=== PATIENT | male | born 1995 | race Caucasian/White ===

== ENCOUNTER 2017-07-19 22:20 | Emergency (ER) | payer MEDICAID, OTHER ==
[~2017-07-19] VITALS: Ht 175.3 cm; Wt 50.5 kg
[2017-07-19 22:21] VITALS: BP 112/71
[2017-07-19] MEDS ORDERED: KETOROLAC 30 MG/1 ML ONE (23:52)
[2017-07-20] MEDS ORDERED: KETOROLAC 30 MG/1 ML IM ONE
== END 2017-07-20 00:15 | disposition home or self-care (01) ==
LOC: ED 23:59
DX: S06.0X0A Concussion without loss of consciousness, initial encounter (principal); S16.1XXA Strain of muscle, fascia and tendon at neck level, initial encounter; S39.012A Strain of muscle, fascia and tendon of lower back, initial encounter; V89.2XXA Person injured in unspecified motor-vehicle accident, traffic, initial encounter; Y93.89 Activity, other specified; Y92.89 Other specified places as the place of occurrence of the external cause; Y99.8 Other external cause status
CPT/HCPCS: 70450; 72072; 72125; 96372; 99284; J1885

== ENCOUNTER 2019-12-10 02:38 | Emergency (ER) | payer OTHER ==
[~2019-12-10] VITALS: Ht 175.3 cm; Wt 48.1 kg
[2019-12-10 02:39] VITALS: BP 117/82
[2019-12-10] MEDS ORDERED: IBUPROFEN 200 MG TABLET PO ONE (03:30)
[2019-12-10] MEDS ORDERED: METHOCARBAMOL 750 MG TABLET PO ONE (03:30)
[2019-12-10] MEDS ORDERED: METHOCARBAMOL 750 MG TABLET ONE (03:51)
[2019-12-10] MEDS ORDERED: IBUPROFEN 200 MG TABLET ONE (03:52)
--- NOTE | 2019-12-10 03:57 | NUR ---
Patient/Caregiver given discharge instructions and they have confirmed that they understand the instructions. Patient ambulatory with steady gait.
== END 2019-12-10 03:58 | disposition home or self-care (01) ==
LOC: ED 03:08
DX: K02.9 Dental caries, unspecified (principal); K01.1 Impacted teeth; K08.89 Other specified disorders of teeth and supporting structures
CPT/HCPCS: 99283

== ENCOUNTER 2020-04-19 15:51 | Emergency (ER) | payer MEDICAID ==
[~2020-04-19] VITALS: Ht 175.3 cm; Wt 49.5 kg
[2020-04-19 16:05] VITALS: BP 113/64
== END 2020-04-19 16:53 | disposition home or self-care (01) ==
LOC: ED 16:28
DX: K02.9 Dental caries, unspecified (principal); K08.89 Other specified disorders of teeth and supporting structures
CPT/HCPCS: 99283

== ENCOUNTER 2020-04-23 17:00 | Inpatient (IN) | payer MEDICAID ==
[~2020-04-23] VITALS: Ht 175.3 cm; Wt 49.4 kg
[2020-04-23] MEDS ORDERED: ONDANSETRON 2MG/ML, 2ML IVPush ONE (17:30)
[2020-04-23] MEDS ORDERED: SODIUM CHLORIDE FLUSH 10ML SYR IVF ONE (17:30)
[2020-04-23] MEDS ORDERED: DEXAMETHASONE 4 MG/ML, 1ML IVPush ONE (17:30)
[2020-04-23] MEDS ORDERED: SODIUM CHLORIDE 0.9% 1,000ML IVBOLUS ONE (17:30)
[2020-04-23 18:50] LABS: BASOPHILS % (AUTO) 1 % (0-1); EOSINOPHILS % (AUTO) 0 % (1-7); LYMPHOCYTES % (AUTO) 12 % (22-44); MEAN CORPUSCULAR HEMOGLOBIN 30.3 pg (27.5-34.5); MEAN CORPUSCULAR HGB CONC 34.2 g/dL (33.2-36.2); MEAN PLATELET VOLUME 8.7 fL (7.4-10.4); MONOCYTES % (AUTO) 10 % (2-9); NEUTROPHILS % (AUTO) 77 % (42-75); PLATELET COUNT 249 x10^3/uL (130-400); RED BLOOD COUNT 4.98 x10^6/uL (4.38-5.82); RED CELL DISTRIBUTION WIDTH 12.9 % (9.4-14.8)
[2020-04-23 18:52] LABS: MD NO
[2020-04-23 18:56] LABS: ALBUMIN 3.8 g/dL (3.4-5.0); ANION GAP 4 mmol/L (5-15); CALCIUM 9.3 mg/dL (8.5-10.1); CHLORIDE 107 mmol/L (98-107); CREATININE 0.79 mg/dL (0.7-1.3)
[2020-04-23] MEDS ORDERED: DEXAMETHASONE 4 MG/ML, 5ML ONE (20:38)
[2020-04-23] MEDS ORDERED: MORPHINE SULFATE 4 MG/ML, 1ML ONE (20:39)
[2020-04-23] MEDS ORDERED: ONDANSETRON 2MG/ML, 2ML ONE (20:39)
[2020-04-23] MEDS: MORPHINE SULFATE 4 MG/ML, 1ML IVPush PRN (20:46)
--- NOTE | 2020-04-23 20:50 | NUR ---
PT MEDICATED PER ORDER PRIOR TO CT. PT TO CT NOW
[2020-04-23] MEDS ORDERED: OMNIPAQUE 350 MG/ML, 100ML BOTTLE ONE (20:57)
--- NOTE | 2020-04-23 22:05 | NUR ---
PT TO BE ADMITTED. NPO AFTER MIDNIGHT.
[2020-04-23] MEDS ORDERED: SODIUM CHLORIDE 0.9% 1,000 ML IV ONE (22:30)
[2020-04-23] MEDS ORDERED: AMPICILLIN/SULBACTAM 3 GM in SODIUM CHLORIDE 0.9% 100 ML IV ONE (22:30)
[2020-04-23] MEDS ORDERED: SODIUM CHLORIDE 0.9% 1,000 ML IV SCH (23:00)
[2020-04-23] MEDS ORDERED: HEPARIN 5,000 UNITS/ML, 1ML SQ SCH (23:00)
[2020-04-23] MEDS ORDERED: DOCUSATE 100 MG CAPSULE PO PRN (23:00)
[2020-04-23] MEDS ORDERED: ACETAMINOPHEN 325 MG TABLET PO PRN (23:00)
--- NOTE | 2020-04-23 23:04 | NUR ---
RECEIVED BS REPORT FROM LUIS LLANOS TO ASSUME CARE OF PT. PT. RESTING ON GURNEY WITH NAD. PT. DENIES DISCOMFORT/PAIN AT THIS TIME. CALL LIGHT IN REACH. AWAITING HOSPITAL BED.
[2020-04-24] MEDS: DEXAMETHASONE 4 MG/ML, 1ML IVPush SCH ×4 (00:21→19:32)
[2020-04-24] MEDS ORDERED: HEPARIN 5,000 UNITS/ML, 1ML ONE (01:06)
--- NOTE | 2020-04-24 01:21 | NUR ---
NEW IV PLACED PER PT. REQUEST. EXPLANIED NPO STATUS TO PT. PT. UPSET WITH THIS BUT DID VERBALIZE UNDERSTANDING. MEDICATED PER JUN. AWATING HOSPITAL BED FOR PT.
--- NOTE | 2020-04-24 02:49 | NUR ---
HOSPITAL BED PROVIDED TO PT. PT. DENIES OTHER NEEDS AT THIS TIME. CALL LIGHT IN REACH; ALL VS UPDATED.
[2020-04-24 04:48] LABS: BASOPHILS % (AUTO) 0 % (0-1); EOSINOPHILS % (AUTO) 0 % (1-7); LYMPHOCYTES % (AUTO) 11 % (22-44); MEAN CORPUSCULAR HGB CONC 33.8 g/dL (33.2-36.2); MEAN PLATELET VOLUME 9.1 fL (7.4-10.4); MONOCYTES % (AUTO) 3 % (2-9); NEUTROPHILS % (AUTO) 86 % (42-75); PLATELET COUNT 229 x10^3/uL (130-400); RED BLOOD COUNT 4.39 x10^6/uL (4.38-5.82); RED CELL DISTRIBUTION WIDTH 12.8 % (9.4-14.8)
[2020-04-24] MEDS ORDERED: DEXAMETHASONE 4 MG/ML, 1ML ONE (04:52)
[2020-04-24 04:59] LABS: ANION GAP 5 mmol/L (5-15); CALCIUM 8.1 mg/dL (8.5-10.1); CHLORIDE 108 mmol/L (98-107)
[2020-04-24 05:00] LABS: CREATININE 0.66 mg/dL (0.7-1.3)
[2020-04-24 05:09] LABS: MD NO
--- NOTE | 2020-04-24 05:09 | NUR ---
PT. AMBULATORY ACROSS [facility] TO BR WITH STEADY GAIT. MEDICATED PER JUN. VS UPDATED. RAPID COVID COLLECTED AND WALKED TO LAB. PT. DENIES NEEDS AT THIS TIME. REPORTS INCREASING PAIN BUT DECLINES PAIN MEDS AT THIS TIME; AWARE THEY ARE AVAIL IF NEEDED AND STATES WILL CALL. CALL LIGHT IN REACH.
[2020-04-24] MEDS ORDERED: AMPICILLIN/SULBACTAM 3 GM in SODIUM CHLORIDE 0.9% 100 ML IV SCH (05:30)
--- NOTE | 2020-04-24 07:09 | NUR ---
REPORT TO LUIS BRIZUELA.
--- NOTE | 2020-04-24 07:48 | NUR ---
RECEIVED REPORT FROM AMELIA. PATIENT IS RESTING COMFORTABLY WITH NO COMPLAINTS.
[2020-04-24] MEDS ORDERED: MORPHINE SULFATE 4 MG/ML, 1ML ONE ×3 (08:09→22:28)
[2020-04-24] MEDS: MORPHINE SULFATE 4 MG/ML, 1ML IVPush PRN (08:12)
[2020-04-24] MEDS: NICOTINE 14MG/24 HR PATCH.TD24 TD SCH (09:00)
[2020-04-24] MEDS: HEPARIN 5,000 UNITS/ML, 1ML SQ SCH ×3 (09:30→22:03)
[2020-04-24 11:07] VITALS: BP 110/58
[2020-04-24] MEDS: AMPICILLIN/SULBACTAM 3 GM in SODIUM CHLORIDE 0.9% 100 ML IV SCH ×2 (11:20→20:23)
[2020-04-24 12:00] VITALS: BP 120/56
[2020-04-24] MEDS ORDERED: CHLORHEXIDINE 15 ML UDC ONE ×2 (16:04→17:06)
[2020-04-24] MEDS ORDERED: CHLORHEXIDINE 15 ML UDC MM ONE (16:30)
[2020-04-24] MEDS ORDERED: BUPIVACAINE/PF 0.25% ONE (16:53)
[2020-04-24] MEDS ORDERED: EPINEPHRINE 1 MG/ML, 1ML ONE (16:53)
[2020-04-24] MEDS ORDERED: LIDOCAINE/PF 1%, 30ML ONE (16:53)
[2020-04-24] MEDS ORDERED: FENTANYL PF 250 MCG/5ML ONE (17:16)
[2020-04-24] MEDS ORDERED: MIDAZOLAM 1 MG/ML, 2ML ONE (17:16)
[2020-04-24] MEDS ORDERED: PROPOFOL 10 MG/ML, 20ML ONE (17:21)
[2020-04-24] MEDS ORDERED: OXYMETAZOLINE NASAL SPRAY 0.05%,30ML ONE (17:21)
[2020-04-24] MEDS ORDERED: ONDANSETRON 2MG/ML, 2ML ONE (17:21)
[2020-04-24] MEDS ORDERED: ROCURONIUM 10 MG/ML,10ML ONE (17:21)
[2020-04-24] MEDS ORDERED: SUCCINYLCHOLINE 20 MG/ML, 10ML ONE (17:21)
[2020-04-24] MEDS ORDERED: LIDOCAINE 1%-EPI 1:100K, 20ML INFIL ONE (17:34)
[2020-04-24] MEDS ORDERED: ONDANSETRON 2MG/ML, 2ML IVPush PRN (18:00)
[2020-04-24] MEDS ORDERED: LABETALOL 5MG/ML, 20ML IV PRN (18:00)
[2020-04-24] MEDS ORDERED: OXYcodone 5 MG/5 ML ORAL.SOL UDC PO PRN (18:00)
[2020-04-24] MEDS ORDERED: PROMETHAZINE 25 MG/ML, 1ML IV PRN (18:00)
[2020-04-24] MEDS ORDERED: KETOROLAC 30 MG/1 ML IV PRN (18:00)
[2020-04-24] MEDS ORDERED: HYDROmorphone 1 MG/ML, 1ML INJ IV PRN (18:00)
[2020-04-24] MEDS ORDERED: DIAZEPAM 5 MG/ML, 2ML IV PRN ×2 (18:00)
[2020-04-24] MEDS ORDERED: MEPERIDINE/PF 25MG/0.5ML IVPush PRN (18:00)
[2020-04-24] MEDS ORDERED: METOCLOPRAMIDE 5 MG/ML, 2ML IV PRN (18:00)
[2020-04-24] MEDS ORDERED: hydrALAzine 20 MG/ML, 1ML IV PRN (18:00)
[2020-04-24] MEDS ORDERED: ALBUTEROL SULFATE 2.5 MG/3 ML NPPB PRN (18:00)
[2020-04-24] MEDS ORDERED: FENTANYL PF 100 MCG/2ML ONE (18:04)
[2020-04-24] MEDS ORDERED: DIAZEPAM 5 MG/ML, 2ML ONE (18:10)
[2020-04-24] MEDS: FENTANYL PF 100 MCG/2ML IV PRN ×2 (18:12→18:17)
[2020-04-24] MEDS ORDERED: ALBUTEROL HFA 90 MCG/SPRAY INH PRN (18:30)
[2020-04-24] MEDS: morphine SULFATE 10 MG/ML, 1ML IVPush PRN ×2 (19:31→22:32)
[2020-04-24] MEDS: CHLORHEXIDINE 15 ML UDC MM SCH (19:32)
[2020-04-24 20:28] VITALS: BP 145/80
[2020-04-25] MEDS ORDERED: MORPHINE SULFATE 4 MG/ML, 1ML ONE ×2 (01:25→04:22)
[2020-04-25] MEDS: morphine SULFATE 10 MG/ML, 1ML IVPush PRN ×3 (01:31→20:32)
[2020-04-25] MEDS: DEXAMETHASONE 4 MG/ML, 1ML IVPush SCH ×4 (01:31→20:25)
[2020-04-25 02:26] VITALS: BP 118/73
[2020-04-25] MEDS: AMPICILLIN/SULBACTAM 3 GM in SODIUM CHLORIDE 0.9% 100 ML IV SCH ×4 (02:35→22:24)
[2020-04-25 05:51] LABS: BASOPHILS % (AUTO) 0 % (0-1); EOSINOPHILS % (AUTO) 0 % (1-7); LYMPHOCYTES % (AUTO) 3 % (22-44); MEAN CORPUSCULAR HGB CONC 33.7 g/dL (33.2-36.2); MEAN PLATELET VOLUME 8.6 fL (7.4-10.4); MONOCYTES % (AUTO) 7 % (2-9); NEUTROPHILS % (AUTO) 90 % (42-75); PLATELET COUNT 234 x10^3/uL (130-400); RED BLOOD COUNT 4.22 x10^6/uL (4.38-5.82); RED CELL DISTRIBUTION WIDTH 12.7 % (9.4-14.8)
[2020-04-25 06:03] LABS: CHLORIDE 107 mmol/L (98-107)
[2020-04-25 06:09] LABS: MD NO
[2020-04-25 06:11] LABS: ALANINE AMINOTRANSFERASE 13 U/L (12-78); ALBUMIN 2.9 g/dL (3.4-5.0); ALKALINE PHOSPHATASE 58 U/L (45-117); ANION GAP 4 mmol/L (5-15); BILIRUBIN,TOTAL 0.4 mg/dL (0.2-1.0); CALCIUM 8.3 mg/dL (8.5-10.1); CREATININE 0.62 mg/dL (0.7-1.3); TOTAL PROTEIN 6.2 g/dL (6.4-8.2)
[2020-04-25 07:15] VITALS: BP 122/67
[2020-04-25] MEDS: CHLORHEXIDINE 15 ML UDC MM SCH ×2 (08:03→20:26)
[2020-04-25] MEDS: NICOTINE 14MG/24 HR PATCH.TD24 TD SCH (08:04)
[2020-04-25] MEDS: HEPARIN 5,000 UNITS/ML, 1ML SQ SCH ×2 (08:04→16:46)
[2020-04-25 12:10] VITALS: BP 117/71
[2020-04-25 19:09] VITALS: BP 125/76
[2020-04-26 00:20] VITALS: BP 114/69
[2020-04-26] MEDS: HEPARIN 5,000 UNITS/ML, 1ML SQ SCH ×3 (01:09→17:30)
[2020-04-26] MEDS: DEXAMETHASONE 4 MG/ML, 1ML IVPush SCH ×4 (03:06→20:38)
[2020-04-26] MEDS: AMPICILLIN/SULBACTAM 3 GM in SODIUM CHLORIDE 0.9% 100 ML IV SCH ×4 (04:53→23:04)
[2020-04-26 06:50] VITALS: BP 113/75
[2020-04-26 07:16] LABS: BASOPHILS % (AUTO) 0 % (0-1); EOSINOPHILS % (AUTO) 0 % (1-7); LYMPHOCYTES % (AUTO) 6 % (22-44); MEAN CORPUSCULAR HEMOGLOBIN 30.8 pg (27.5-34.5); MEAN CORPUSCULAR HGB CONC 34.6 g/dL (33.2-36.2); MEAN PLATELET VOLUME 8.7 fL (7.4-10.4); MONOCYTES % (AUTO) 9 % (2-9); NEUTROPHILS % (AUTO) 85 % (42-75); PLATELET COUNT 256 x10^3/uL (130-400); RED BLOOD COUNT 4.29 x10^6/uL (4.38-5.82); RED CELL DISTRIBUTION WIDTH 12.8 % (9.4-14.8)
[2020-04-26 07:23] LABS: MD NO
[2020-04-26 07:24] LABS: ANION GAP 2 mmol/L (5-15); CALCIUM 8.7 mg/dL (8.5-10.1); CHLORIDE 108 mmol/L (98-107); CREATININE 0.53 mg/dL (0.7-1.3)
[2020-04-26] MEDS: NICOTINE 14MG/24 HR PATCH.TD24 TD SCH (09:24)
[2020-04-26] MEDS: CHLORHEXIDINE 15 ML UDC MM SCH ×2 (09:25→20:38)
[2020-04-26 12:39] VITALS: BP 101/56
[2020-04-26 19:52] VITALS: BP 111/63
[2020-04-27] MEDS: HEPARIN 5,000 UNITS/ML, 1ML SQ SCH ×2 (01:30→08:48)
[2020-04-27 02:20] VITALS: BP 95/56
[2020-04-27] MEDS: DEXAMETHASONE 4 MG/ML, 1ML IVPush SCH ×2 (02:20→08:48)
[2020-04-27] MEDS: AMPICILLIN/SULBACTAM 3 GM in SODIUM CHLORIDE 0.9% 100 ML IV SCH ×2 (04:16→10:24)
[2020-04-27 04:50] LABS: BASOPHILS % (AUTO) 0 % (0-1); EOSINOPHILS % (AUTO) 0 % (1-7); LYMPHOCYTES % (AUTO) 10 % (22-44); MEAN CORPUSCULAR HEMOGLOBIN 30.5 pg (27.5-34.5); MEAN CORPUSCULAR HGB CONC 34.2 g/dL (33.2-36.2); MEAN PLATELET VOLUME 8.2 fL (7.4-10.4); MONOCYTES % (AUTO) 9 % (2-9); NEUTROPHILS % (AUTO) 81 % (42-75); PLATELET COUNT 283 x10^3/uL (130-400); RED BLOOD COUNT 4.22 x10^6/uL (4.38-5.82); RED CELL DISTRIBUTION WIDTH 12.6 % (9.4-14.8)
[2020-04-27 04:53] LABS: MD NO
[2020-04-27 05:10] LABS: ANION GAP 5 mmol/L (5-15); CALCIUM 8.4 mg/dL (8.5-10.1); CHLORIDE 110 mmol/L (98-107); CREATININE 0.52 mg/dL (0.7-1.3)
[2020-04-27 07:20] VITALS: BP 104/56
[2020-04-27] MEDS: NICOTINE 14MG/24 HR PATCH.TD24 TD SCH (08:47)
[2020-04-27] MEDS: CHLORHEXIDINE 15 ML UDC MM SCH (08:48)
[2020-04-27] MEDS ORDERED: AMOX1TAB64 PO (11:26)
[2020-04-27 12:26] VITALS: BP 116/67
== END 2020-04-27 12:43 | disposition home or self-care (01) | DRG 137 ==
LOC: ED 20:40 → EDIP 04-24 00:20 → 3N 04-24 10:31
PROVIDERS: ADMIT Family Medicine; ATTEND Family Medicine
PROC: 0CTX0Z0 Resection of Lower Tooth, Single, Open Approach (ICD-10-PCS; 2020-04-24)
PROC: 0W950ZZ Drainage of Lower Jaw, Open Approach (ICD-10-PCS; principal; 2020-04-24 17:00)
PROC: 0CDWXZ0 Extraction of Upper Tooth, Single, External Approach (ICD-10-PCS; 2020-04-24 17:00)
DX: K02.9 Dental caries, unspecified (principal); K12.2 Cellulitis and abscess of mouth; F17.200 Nicotine dependence, unspecified, uncomplicated; D72.829 Elevated white blood cell count, unspecified; K04.7 Periapical abscess without sinus; M27.2 Inflammatory conditions of jaws; Z20.828 Contact with and (suspected) exposure to other viral communicable diseases
CPT/HCPCS: 36415; 70100; 96361; 96365; 96375; 99285; J3490; 70491; 80048; 80053; 82040; 85025; 86308; 87015; 87070; 87075; 87102; 87116; 87147; 87205; 87206; 87635; G0378; J0171; J0295; J1100; J1644; J2250; J2405; J2704; J3010; J3360; Q9967; J0330; J2270; J7030